=== PATIENT | male | born 1960 | race Caucasian/White ===

== ENCOUNTER 2025-06-13 14:31 | Inpatient (IN) | payer MEDICARE, OTHER, SELFPAY ==
--- NOTE | 2025-06-13 14:34 | EKG_ITS ---
[facility] Test Date: 2025-06-13 Pat Name: CORAZON ALEXANDER Department: Room: - Gender: Male Poly Operator: : 1960 Requested By: Tobin Awad (ORI) Order Number: [id number] Reading MD: Tobin Awad (LOAD TALLIER) Measurements Intervals [place] Rate: 107 P: 70 MO: 137 QRS: -80 QRSD: 136 T: 29 QT: 341 QTc: 455 Interpretive Statements SINUS TACHYCARDIA WITH OCCASIONAL SUPRAVENTRICULAR PREMATURE COMPLEXES INDETERMINATE AXIS RIGHT BUNDLE BRANCH BLOCK [120+ ms QRS DURATION, UPRIGHT V1, 40+ ms S IN I/aVL/V4/V5/V6] LEFT ANTERIOR FASCICULAR BLOCK [QRS AXIS <= -45, QR IN I, RS IN II] No previous ECG available for comparison /store/S0/[id number].pdf
--- NOTE | 2025-06-13 14:53 | EDRME_ITS ---
Rapid Medical Screening Exam RME Arrival date/time: 06/13/25 14:31 65-year-old male presents to the Emergency Department with complaints of right- sided chest pain Chief Complaint: Shortness of Breath/Dyspnea Time Seen by Provider: 06/13/25 15:13 Vital signs: Vital Signs Temperature 103.1 F H 06/13/25 15:03 Pulse Rate 100 06/13/25 15:03 Respiratory Rate 18 06/13/25 15:03 Blood Pressure 175/74 H 06/13/25 15:03 Pulse Oximetry (%) 97 06/13/25 15:03 Oxygen Delivery Method Room Air 06/13/25 15:03 Vital signs reviewed by provider: Yes Exam: On exam well-appearing does not appear ill or toxic Clinical Impression: Lab work imaging EKG and chest x-ray obtained
[2025-06-13 15:03] VITALS: BP 175/74; PULSE 100; RESP 18; TEMP 39.5; O2SAT 97; BMI 23.5
--- NOTE | 2025-06-13 15:27 | XR_ITS ---
EXAMINATION: PA chest single view TECHNIQUE: Upright PA chest single view Date and time: June 13, 2025, 1524 hours INDICATIONS: Sepsis protocol today sepsis alert shortness of breath cough and chest pain beginning 2 days ago. FINDINGS: Bibasilar pneumonia Prominent hilar regions Normal heart size No pulmonary edema Moderate osteopenia IMPRESSION: Significant bibasilar pneumonia
--- NOTE | 2025-06-13 15:42 | EDNOTE_ITS ---
ED SOB =RME/HPI General Chief Complaint: Shortness of Breath/Dyspnea Stated Complaint: WATER IN LUNGS Time Seen by Provider: 06/13/25 15:13 Arrival date/time: 06/13/25 14:31 RME / HPI RME / HPI Narrative: 06/13/25 14:31 65-year-old male presents to the Emergency Department with complaints of right- sided chest pain DR. PIERSON MAIN ED EVALUATION 65 year old male with history of hypertension, not currently on medications, presents to the ED for evaluation of cough, nasal congestion, global weakness, nausea, and cough beginning 2 days ago. Additionally reports diarrhea beginning today. States he has had three episodes of black colored diarrhea today, no bright red blood present. Denies any sick contacts or fevers at home. Patient mentioned he had been homeless the last 9 months ago today got into the [employer] [facility] where he will be housed. No other associated symptoms reported. Patient admits to IV Methamphetamine and IV Fentanyl use. Last injected 4 days ago to the right arm. Exam: On exam well-appearing does not appear ill or toxic Impression: Lab work imaging EKG and chest x-ray obtained Related Data Allergies Allergy/AdvReac Type Severity Reaction Status Date / Time acetaminophen (From Vicodin) Allergy Verified 06/13/25 14:36 codeine Allergy Verified 06/13/25 14:36 hydrocodone (From Vicodin) Allergy Verified 06/13/25 14:36 Review of Systems Review of Systems Systems Reviewed: All systems reviewed, normal except as documented Past Medical History Past Medical History CARDIAC: Negative Congestive Heart Failure RESPIRATORY: Negative Chronic Obstructive Pulmonary Disease (COPD) GENITOURINARY: Negative Renal Disease ENDOCRINE: Negative Diabetes Mellitus Type 1 or Diabetes Mellitus Type 2 Social History SMOKING STATUS: Current every day smoker ED Exam Narrative Physical exam: Constitutional: Awake, alert, elderly appearance, appears unwell. HEENT: Normocephalic, atraumatic. CV: Mildly tachy rate and regular rhythm, no murmurs/rubs/gallops Lungs: Diminished to left lung price with fine crackles present, mild tachypnea. Abd: Soft, NT, ND, no HSM noted to palpation Extremities: track penaloza noted to AC fossa R arm. scattered superficial abrasions to arms. Neuro: AAOx3, no acute neuro deficit noted. Skin: Warm, dry, intact except as noted. Course Course Course Narrative: 1724h: I spoke with hospitalist team C for admission. Sepsis reassessment performed consisting of lab review, vitals, physical exam. Patient has been given 1L lactated ringers. Rocephin IV has been administered. Quality Measures Current suspected stage: sepsis Possible source: pulmonary Blood cultures ordered: completed in ED Antibiotic ordered: Yes Pertinent labs: 06/13/25 06/13/25 15:12 16:00 Lactic Acid 1.3 mMol/L (0.4-2.0) Procalcitonin 0.24 ng/ml (0.0-0.49) sepsis Orders Category Date Time Status Admit to Inpatient Status Routine Admission 06/13/25 18:10 Active Patient Condition Routine Admission 06/13/25 18:10 Ordered Bedside COVID-19 Antigen Test NOW Care 06/13/25 15:27 Active Bedside Influenza A&B Antigen Test NOW Care 06/13/25 15:30 Completed Bedside RSV Test NOW Care 06/13/25 15:27 Completed Bedside STREP Test NOW Care 06/13/25 18:12 Completed Director Of Regional Sales STAT Care 06/13/25 15:26 Active Continuous Pulse Oximetry STAT Care 06/13/25 15:26 Completed EKG (ED ONLY) *Do not use* NOW Care 06/13/25 14:34 Completed EKG (ED ONLY) *Do not use* NOW Care 06/13/25 15:26 Completed Insert IV NOW Care 06/13/25 15:26 Active Notify provider NEEDED Care 06/13/25 18:10 Active Strict Intake and Output Routine Care 06/13/25 15:26 Ordered Diet Regular Diet 06/13/25 Dinner Active EKG (ED Only) Stat Exams 06/13/25 14:34 Draft EKG (ED Only) Stat Exams 06/13/25 15:26 Ordered XR chest 1V SEPSIS PROTOCOL Stat Exams 06/13/25 15:27 Completed B-Type Natriuretic Peptide Stat Lab 06/13/25 15:12 Completed Blood Culture (Lab) Stat Lab 06/13/25 16:05 Received CBC AM DRAW Lab 06/14/25 05:00 Ordered CBC AM DRAW Lab 06/15/25 05:00 Ordered CBC AM DRAW Lab 06/16/25 05:00 Ordered CBC AM DRAW Lab 06/17/25 05:00 Ordered CBC AM DRAW Lab 06/18/25 05:00 Ordered CBC AM DRAW Lab 06/19/25 05:00 Ordered CBC AM DRAW Lab 06/20/25 05:00 Ordered CBC Stat Lab 06/13/25 16:00 Completed CMP [Comprehensive Metabolic Panel] AM DRAW Lab 06/14/25 05:00 Ordered CMP [Comprehensive Metabolic Panel] AM DRAW Lab 06/15/25 05:00 Ordered CMP [Comprehensive Metabolic Panel] AM DRAW Lab 06/16/25 05:00 Ordered CMP [Comprehensive Metabolic Panel] AM DRAW Lab 06/17/25 05:00 Ordered CMP [Comprehensive Metabolic Panel] AM DRAW Lab 06/18/25 05:00 Ordered CMP [Comprehensive Metabolic Panel] AM DRAW Lab 06/19/25 05:00 Ordered CMP [Comprehensive Metabolic Panel] AM DRAW Lab 06/20/25 05:00 Ordered Comprehensive Metabolic Panel Stat Lab 06/13/25 15:12 Completed Drug Screen,Urine Stat Lab 06/13/25 17:36 Completed Extra Blue Top for Platelet Routine Lab 06/13/25 18:23 Ordered Lactate (Lactic Acid) Stat Lab 06/13/25 16:00 Completed Lipid Panel AM DRAW Lab 06/14/25 05:00 Ordered MRSA Nasal Screen Stat Lab 06/13/25 18:24 Ordered Mag [Magnesium] AM DRAW Lab 06/14/25 05:00 Ordered Mag [Magnesium] AM DRAW Lab 06/15/25 05:00 Ordered Mag [Magnesium] AM DRAW Lab 06/16/25 05:00 Ordered Mag [Magnesium] AM DRAW Lab 06/17/25 05:00 Ordered Mag [Magnesium] AM DRAW Lab 06/18/25 05:00 Ordered Mag [Magnesium] AM DRAW Lab 06/19/25 05:00 Ordered Mag [Magnesium] AM DRAW Lab 06/20/25 05:00 Ordered Magnesium Stat Lab 06/13/25 15:12 Completed Partial Thromboplastin Time Stat Lab 06/13/25 15:12 Completed Phosphorous AM DRAW Lab 06/14/25 05:00 Ordered Phosphorous AM DRAW Lab 06/15/25 05:00 Ordered Phosphorous AM DRAW Lab 06/16/25 05:00 Ordered Phosphorous AM DRAW Lab 06/17/25 05:00 Ordered Phosphorous AM DRAW Lab 06/18/25 05:00 Ordered Phosphorous AM DRAW Lab 06/19/25 05:00 Ordered Phosphorous AM DRAW Lab 06/20/25 05:00 Ordered Phosphorous Stat Lab 06/13/25 15:12 Completed Procalcitonin Stat Lab 06/13/25 15:12 Completed Prothrombin Time with INR Stat Lab 06/13/25 15:12 Completed Thyroid Stimulating Hormone AM DRAW Lab 06/14/25 05:00 Ordered Troponin I Stat Lab 06/13/25 15:12 Completed Urinalysis, C/S if Indicated Stat Lab 06/13/25 17:36 Completed Acetaminophen Ivpb [Ofirmev Inj] Med 06/13/25 17:12 Discontinued 1,000 mg in 100 ml IV NOW Acetaminophen Tab [Tylenol Tab] Med 06/13/25 18:15 Active 650 mg PO Q6H PRN Enoxaparin [Lovenox] Med 06/14/25 09:00 Active 40 mg SC QDAY Magnesium Sulfate 2 GM Ivpb [Magnesium Sulfate Ivpb] Med 06/13/25 17:17 Active 2 gm in 50 ml IV X1 Ondansetron Inj [Zofran Inj] Med 06/13/25 15:27 Discontinued 4 mg IVP X1 ONE Pantoprazole Inj [Protonix Inj] Med 06/13/25 15:27 Discontinued 40 mg IVP X1 ONE Ringers Lactated 1000 ml [Lactated Ringers] 1,000 ml Med 06/13/25 15:27 Discontinued IV 999 mls/hr Sodium Chloride 0.9% 1000 ml [Ns] 1,000 ml Med 06/13/25 15:33 Discontinued IV 999 mls/hr cefTRIAXone/D5w 1gm IV premix [Rocephin/D5w 1gm IV Med 06/13/25 15:33 Discontinued premix] 1 gm in 50 ml IV X1 Code Status Routine Oth 06/13/25 18:10 Ordered Oxygen Delivery PRN RT 06/13/25 18:10 Active Vital Signs Vital signs: Vital Signs Temperature 103.1 F H 06/13/25 15:03 Pulse Rate 100 06/13/25 15:03 Respiratory Rate 18 06/13/25 15:03 Blood Pressure 175/74 H 06/13/25 15:03 Pulse Oximetry (%) 97 06/13/25 15:03 Oxygen Delivery Method Room Air 06/13/25 15:03 Pulse ox is 97% on room air which is adequate. Shortness of Breath / Dyspnea MDM Narrative MDM Narrative:: Lala Robertson am scribing for and in the presence of Dr. Pierson. Patient data External records reviewed:: [facility] previous records Clinical information provided by:: patient Social determinants that could affect healthcare access:: substance use (IV Meth and Fentanyl, last used 4 days ago ) Patient has the following chronic illnesses:: Hypertension, not currently on medications How is presenting disease/condition affected by chronic disease/condition?: exacerbated by Evaluation data The following diagnostics were reviewed and interpreted by me:: lab results, radiology exam(s) and EKG tracing(s) (EKG @ 15:07p, sinus tachycardia, rate 107, right bundle branch block, left anterior fascicular block, no STEMI. ) Lab and/or radiology exams considered but not ordered:: None Interpretation Summary: Ordering Physician: Kait Pierson MD Date of Service: 06/13/25 Procedure(s): XR chest 1V SEPSIS PROTOCOL Accession Number(s): [id number] cc: Toribio Day MD; Kait Pierson MD~ EXAMINATION: PA chest single view TECHNIQUE: Upright PA chest single view Date and time: June 13, 2025, 1524 hours INDICATIONS: Sepsis protocol today sepsis alert shortness of breath cough and chest pain beginning 2 days ago. FINDINGS: Bibasilar pneumonia Prominent hilar regions Normal heart size No pulmonary edema Moderate osteopenia IMPRESSION: Significant bibasilar pneumonia Dictated By: Toribio Day MD Signed By: <Electronically signed by Toribio Day MD in OV> 06/13/25 1542 Medications / Prescriptions Medications or Prescriptions considered but not ordered:: None Medication administrations:: Medication Administration History Acetaminophen (Acetaminophen 325 Mg Tablet) 650 mg PO Q6H PRN PRN Reason: Fever >100.5 Stop: 07/13/25 18:14 Enoxaparin Sodium (Enoxaparin Sod Inj 40 Mg/0.4 Ml Syringe) 40 mg SC QDAY VERONIQUE Stop: 06/28/25 08:59 Magnesium Sulfate (Magnesium Sulfate Ivpb) 2 gm in 50 mls @ 25 mls/hr IV X1 ONE Stop: 06/13/25 19:16 Discontinued Medications Lactated Ringer's (Lactated Ringers) 1,000 mls @ 999 mls/hr IV .Q1H1M ONE Stop: 06/13/25 16:27 Last Infusion: 06/13/25 17:57 Dose: Infused Documented By: Admin: 06/13/25 16:56 Dose: 999 mls/hr Documented By: VL Sodium Chloride (Ns) 1,000 mls @ 999 mls/hr IV .Q1H1M ONE Stop: 06/13/25 16:33 Ceftriaxone Sodium/Dextrose (Rocephin/D5w 1gm Iv Premix) 1 gm in 50 mls @ 100 mls/hr IV X1 ONE Stop: 06/13/25 16:02 Last Infusion: 06/13/25 17:27 Dose: Infused Documented By: Admin: 06/13/25 16:57 Dose: 100 mls/hr Documented By: VL Acetaminophen (Ofirmev Inj) 1,000 mg in 100 mls @ 250 mls/hr IV NOW ONE Stop: 06/13/25 17:35 Last Infusion: 06/13/25 17:54 Dose: Infused Documented By: Admin: 06/13/25 17:30 Dose: 250 mls/hr Documented By: VL Ondansetron HCl (Ondansetron Inj 2 Mg/Ml Inj 2 Ml) 4 mg IVP X1 ONE; Protocol Stop: 06/13/25 15:28 Last Admin: 06/13/25 16:51 Dose: 4 mg Documented By: VL Pantoprazole Sodium (Pantoprazole Inj 40 Mg Vial) 40 mg IVP X1 ONE Stop: 06/13/25 15:28 Last Admin: 06/13/25 16:51 Dose: 40 mg Documented By: VL See above Consultations Consultation(s) initiated? (list below): Yes Consultation #1 (Physician, Specialty, Details): See above Diagnosis Shortness of Breath Differential Diagnosis: acute exacerbation of chronic obstructive airways disease, congestive heart failure and community acquired pneumonia Most likely diagnosis given after review of the tests above:: Pneumonia, sepsis Admission Indicated Admission indicated?: indicated Admission Request Was there a request for admission?: Yes Admission Attestation Admission request attestation: Discussed case with [] from Hospitalist service regarding admission. Discussed patients ED course, exam findings, labs, and radiology results. The Hospitalist [agrees,declines] to accept the patient for admission. Disposition Plan Disposition Plan: Admit Discharge Plan Plan Patient Disposition: Admit Acute Care w/in Hospital Prescriptions/Referrals Referrals: No Primary/Family,Physician [Primary Care Provider] - In 1 week Problem List Clinical Impression: Community acquired pneumonia, Sepsis Patient/Caregiver Discharge Instructions Print Language: Citizen Of [place] Stand Alone Forms: [place] Award Info., Patient Portal Info Letter
[2025-06-13 15:55] LABS: INR 1.1 (0.9-1.3); Partial Thromboplastin Time 30.5 Seconds (22.0-36.0); Prothrombin Time 11.7 Seconds (9.0-12.2)
[2025-06-13 16:04] LABS: Alanine Aminotransferase 23 U/L (10-49); Albumin, Serum 4.5 gm/dL (3.4-4.8); Albumin/Globulin Ratio 1.6 (1.2-2.2); Alkaline Phosphatase 113 U/L (46-116); Anion Gap 12 (7-16); Aspartate Amino Transferase 29 U/L (0-34); BUN/Creatinine Ratio 13 Ratio (12-20); Bilirubin,Total 1.0 mg/dL (0.3-1.2); Blood Urea Nitrogen 12 mg/dL (9-23); Calcium 9.1 mg/dL (8.3-10.6); Calcium (Corrected) 9.1 mg/dL (8.5-10.1); Carbon Dioxide 25.4 mMol/L (20.0-31.0); Chloride 97 mMol/L (98-107); Creatinine (Component) 0.9 mg/dL (0.6-1.3); Estimated Creatinine Clearance 75.5 mL/min (>60); Globulin 2.9 gm/dL (2.3-3.5); Glucose 120 mg/dL (74-106); Magnesium 1.3 mg/dL (1.6-2.6); Osmolality,Calculated 268 (275-295); Phosphorous 2.2 mg/dL (2.4-5.1); Potassium 3.7 mMol/L (3.4-5.1); Procalcitonin 0.24 ng/ml (0.0-0.49); Sodium 134 mMol/L (136-145); Total Protein 7.4 gm/dL (5.7-8.2); Troponin I < 0.020 ng/mL (0.0-0.045); eGFR > 60 See Note
[2025-06-13 16:11] LABS: Lactate (Lactic Acid) 1.3 mMol/L (0.4-2.0)
[2025-06-13 16:16] LABS: B-Type Natriuretic Peptide 38 pg/mL (0-100)
[2025-06-13 16:16] LABS: Basophils # (Auto) 0.1 Thou/mm3 (0.0-0.2); Basophils % (Auto) 0 % (0-2.5); Eosinophils # (Auto) 0.0 Thou/mm3 (0.0-0.5); Eosinophils % (Auto) 0 % (0-10); Hematocrit 39.8 % (41.0-53.0); Hemoglobin 13.4 g/dL (13.5-16.0); Immature Granulocytes Auto 0.27 Thou/mm3 (0.00-0.00); Lymphocytes # (Auto) 1.0 Thou/mm3 (1.0-4.8); Lymphocytes % (Auto) 3 % (10-50); Mean Corpuscular HGB Conc 33.7 g/dl (31.0-37.0); Mean Corpuscular Hemoglobin 29.7 pg (25.0-35.0); Mean Corpuscular Volume 88 fL (80-100); Monocytes # (Auto) 2.6 Thou/mm3 (0.0-0.8); Monocytes % (Auto) 8 % (0-12); Neutrophils # (Auto) 28.5 Thou/mm3 (1.8-7.7); Neutrophils % (Auto) 88 % (37-80); Nucleated Red Blood Cell # 0.00 Thou/mm3 (0.00-0.00); Nucleated Red Blood Cell % 0 /100 WBC (0); RDW Standard Deviation 40.8 fL (35.1-43.9); Red Blood Count 4.51 Miln/mm3 (4.50-5.90); White Blood Count 32.5 Thou/mm3 (3.8-10.6)
[2025-06-13 16:34] LABS: Platelet Count 219 Thou/mm3 (140-440)
[2025-06-13] MEDS: ONDANSETRON INJ 2 MG/ML INJ 2 ML 4 MG IVP (16:51)
[2025-06-13] MEDS: RINGERS LACTATED 1000 ML 1,000 ML 999 ML IV (16:56)
[2025-06-13] MEDS: cefTRIAXone/D5w 1gm IV premix 1 GM/50 ML BAG IV (16:57)
[2025-06-13 16:58] VITALS: BP 147/85; PULSE 96; RESP 25; O2SAT 98
[2025-06-13] MEDS: ACETAMINOPHEN IVPB 1,000 MG/100 ML VIAL 250 MG IV (17:30)
[2025-06-13 18:07] LABS: Collection Type, Urine Clean Catch; Squamous Epithelial Cell,Urine 0 /hpf (0-5)
[2025-06-13 18:14] LABS: Bilirubin,Urine Negative (Negative); Blood,Urine Negative (Negative); Clarity,Urine Clear (Clear/Hazy); Color,Urine Lt-Yellow (Lt Yel-Yel); Culture Indicated,Urine Not Indicated; Glucose, Urine Negative (Negative); Ketones,Urine Negative (Negative); Leukocyte Esterase,Urine Negative (Negative); Nitrite,Urine Negative (Negative); PH,Urine 8.0 (5.0-7.0); Protein,Urine Negative (Neg - Trace); RBC,Urine 5 /hpf (0-3); Specific Gravity,Urine 1.009 (1.001-1.035); Urobilinogen,Urine Negative mg/dL (0.0-1.0); WBC,Urine < 1 /hpf (0-5)
[2025-06-13 18:19] LABS: Amphetamine/Methamp Scrn,U Negative (Negative); Barbiturate Screen,Urine Negative (Negative); Benzodiazepines Screen,Urine Negative (Negative); Benzoylecgonine Screen, Ur Negative (Negative); Fentanyl Screen,Urine Positive (Negative); Opiate Screen,Urine Negative (Negative); THC Screen,Urine Negative (Negative)
--- NOTE | 2025-06-13 18:24 | ESHP_ITS ---
<Statement entered by Leandro Castillo MD - 06/14/25 15:22> 65-year-old male with a history of hypertension, meth/fentanyl use who presented for 2-day history of fatigue and cough. Last time he used fentanyl was 2 to 3 days prior to presentation and noted to have had recently started at a rehab center for fentanyl abuse. Exhibiting multiple signs of opioid withdrawal including yawning, diffuse pain, and rhinorrhea amongst others. Initial vitals showed BP 175/74, temp 103.1 ?F but saturating well on room air. CBC showed WBC 32, CHEM panel showed mild hyponatremia, hypophosphatemia, and hypomagnesemia that were repleted. U tox positive for fentanyl. CXR showed significant bibasilar pneumonia. Blood cultures obtained and will follow-up and in the meantime we will start patient on azithromycin and ceftriaxone for commune acquired pneumonia coverage. ----- Note reviewed and agree with care plan as documented. Please refer to the note below for further details. Plan discussed with attending physician Dr. Radha Castillo MD PGY-2 Internal Medicine Documentation for date of: 06/13/25 HPI History of Present Illness Chief complaint: Cough, diarrhea History of present illness: Patient is a 65-year-old male with past medical history of hypertension (not using anti-hypertensives), meth/fentanyl use presented to the ED after having cough, fatigue for the last 2 day. Patient states cough is productive non- bloody cough. Patient states that he has had no sick contacts but has been using drugs. Patient endorses that he usually lives with his sister in [place] but was a rehab center for fentanyl abuse for the last 24 hours or so. Endorses having fever ever since being in ED. Patient states that he last used drugs 2 to 3 days ago. Patient appears to be yawning, having the need to move around, feeling diffuse pain, agitated and endorses rhinorrhea; all concerning for opioid withdrawal. Patient is not sure if he aspirated while under the influence of drugs. Patient also endorses weight loss (unsure how much in how long), cough, fatigue, fever, chest pain on inspiration, epigastric pain, black colored diarrhea. mortgage loan assistant was present during this conversation, wants to know if patient will be well enough to continue living at the rehab. Past Medical History: above; denies any other history including ME, diabetes, stroke. Family History: n/a Surgical History: none noted Social History: endorses smoking history since being out of long term (unsure how much), endorses alcohol intake (not sure how much), endorses meth and fentanyl use Current Medications: Saboxone Allergies: vicodin, codeine, hydrocodone ED Course: -Initial vitals were blood pressure 175/74, pulse 100, respiratory rate 18, temperature 103.1, 97% oxygen on room air -Labs significant for WBC 32.5, hemoglobin 13.4, neutrophil percentage 88, sodium 134, chloride 97, Kos 120 calculated osmolality 268, phosphorus 2.2, magnesium 1.3, urine tox positive for fentanyl -Imaging included EKG showed sinus tachycardia, right bundle branch block Chest x-ray showed significant bibasilar pneumonia -In the ED, patient was given Protonix 40 mg x 1, Zofran x 1, 1 L LR, ceftriaxone x 1, Tylenol 1000 mg IV x 1 Blood cultures x2 taken -Patient was admitted for workup and management of pneumonia Review of Systems Review of systems otherwise negative except what is mentioned above. Exam Vital Signs Temp Pulse Resp BP Pulse Ox O2 Del Method 103.1 F H 96 25 H 147/85 H 98 Room Air 06/13/25 15:03 06/13/25 16:58 06/13/25 16:58 06/13/25 16:58 06/13/25 16:58 06/13/25 16:58 Narrative Exam General: Appears in mild pain discomfort; A&Ox3; frequent yawning, tired, mild agitated Skin: Scratch penaloza fresh/healing scattered throughout body. Tattoos, injection penaloza on arm HENT: NCAT, EOMI/PERRL, not icteric. External ears normal. No rhinorrhea. Moist mucous membranes Cardiovascular: Regular rate and rhythm, no murmur, +S1/S2. Respiratory: Decreased lung sounds bilateral lung lobes; tachypneic GI: Soft, nontender, non-distended. No guarding or rebound tenderness. : No suprapubic tenderness. No flank tenderness bilaterally. Extremities: trace edema b/l, no cyanosis, no clubbing. Extremity pulses present Neuro: Grossly nonfocal. Moving all 4 extremities. CN not formally tested but appear grossly intact. Psychiatric: Cooperative, appropriate affect. Results: Labs 06/14/25 04:55 06/14/25 04:55 Labs: Short CBC 06/13/25 Range/Units 16:00 WBC 32.5 H (3.8-10.6) Thou/mm3 Hgb 13.4 L (13.5-16.0) g/dL Hct 39.8 L (41.0-53.0) % Plt Count 219 (140-440) Thou/mm3 BMP 06/13/25 15:12 Sodium 134 L Potassium 3.7 Chloride 97 L Carbon Dioxide 25.4 BUN 12 Creatinine 0.9 Glucose 120 H Calcium 9.1 Cardiac Enzymes 06/13/25 Range/Units 15:12 Troponin I < 0.020 (0.0-0.045) ng/mL Liver Function 06/13/25 Range/Units 15:12 Total Bilirubin 1.0 (0.3-1.2) mg/dL AST 29 (0-34) U/L ALT 23 (10-49) U/L Alkaline Phosphatase 113 (46-116) U/L Albumin 4.5 (3.4-4.8) gm/dL Urine 06/13/25 Range/Units 17:36 Urine Color Lt-Yellow (Lt Yel-Yel) Urine Clarity Clear (Clear/Hazy) Urine pH 8.0 H (5.0-7.0) Ur Specific [place] 1.009 (1.001-1.035) Urine Protein Negative (Neg - Trace) Urine Glucose (UA) Negative (Negative) Quality Measures Quality Measures sepsis Current suspected stage: ruled out (qsofa 1 for RR 25) Possible source: pulmonary Blood cultures ordered: completed in ED Antibiotic ordered: Yes Advance care planning discussed with:: patient Medications Home Medications and Allergies Home Medications ?Medication ?Instructions ?Recorded ?Confirmed ?Type No Known Home Medications 06/13/2505/27 History Allergies Allergy/AdvReac Type Severity Reaction Status Date / Time acetaminophen (From Vicodin) Allergy Verified 06/13/25 14:36 codeine Allergy Verified 06/13/25 14:36 hydrocodone (From Vicodin) Allergy Verified 06/13/25 14:36 Visit Medications Acetaminophen (Acetaminophen 325 Mg Tablet) 650 mg PO Q6H PRN PRN Reason: Fever >101.5 Stop: 07/13/25 18:14 Enoxaparin Sodium (Enoxaparin Sod Inj 40 Mg/0.4 Ml Syringe) 40 mg SC QDAY VERONIQUE Stop: 06/28/25 08:59 Magnesium Sulfate (Magnesium Sulfate Ivpb) 2 gm in 50 mls @ 25 mls/hr IV X1 ONE Stop: 06/13/25 19:16 Discontinued Medications Lactated Ringer's (Lactated Ringers) 1,000 mls @ 999 mls/hr IV .Q1H1M ONE Stop: 06/13/25 16:27 Last Infusion: 06/13/25 17:57 Dose: Infused Sodium Chloride (Ns) 1,000 mls @ 999 mls/hr IV .Q1H1M ONE Stop: 06/13/25 16:33 Ceftriaxone Sodium/Dextrose (Rocephin/D5w 1gm Iv Premix) 1 gm in 50 mls @ 100 mls/hr IV X1 ONE Stop: 06/13/25 16:02 Last Infusion: 06/13/25 17:27 Dose: Infused Acetaminophen (Ofirmev Inj) 1,000 mg in 100 mls @ 250 mls/hr IV NOW ONE Stop: 06/13/25 17:35 Last Infusion: 06/13/25 17:54 Dose: Infused Ondansetron HCl (Ondansetron Inj 2 Mg/Ml Inj 2 Ml) 4 mg IVP X1 ONE; Protocol Stop: 06/13/25 15:28 Last Admin: 06/13/25 16:51 Dose: 4 mg Pantoprazole Sodium (Pantoprazole Inj 40 Mg Vial) 40 mg IVP X1 ONE Stop: 06/13/25 15:28 Last Admin: 06/13/25 16:51 Dose: 40 mg Assessment & Plan Plan Patient is a 65-year-old male with past medical history of hypertension (not using anti-hypertensives), meth/fentanyl use presented to the ED after having cough, fatigue for the last 2 day. Patient admitted for community acquired pneumonia. #Community acquired pneumonia #Tachypnea Pro-tania low supports viral; neutrophil 88% supports bacterial Patient has had 2 days of non-bloody productive cough, fatigue Decreased breath sounds and tachypneic on exam on admission No recent hospitalization or abx exposure WBC 32.5, Temp 103.1 on admission, pro-tania 0.24, Lactic acid 1.3 Saturating well on room air q-sofa score of 1 for RR 25 Chest x-ray showed significant bibasilar pneumonia Given 1 L LR in ED & Ceftriaxone 1 g x1 -Azithromycin & Ceftriaxone 1 gm qd -mrsa, strep a, covid, flu a/b, rsv ordered -blood cultures taken -O2 delivery prn #Fentanyl withdrawal #Fentanyl use disorder #Diffuse body pain, aches Patient endorses history of fentanyl and meth; last used 2-3 days ago. UTOX positive for fentanyl takes saboxone (only medication) at home morphine x1 given -morphine 1 mg q6hr prn ordered #Melena Patient endorsed black colored diarrhea x3 today complained of epigastric pain earlier in the day; denies any history of GI issues hgb at 13.4 no s/s of bleeding -GI consulted, appreciate recs -protonix iv ordered (x1 in ED) #HTN patient states he doesn't take anti-htn meds presented with bp 175/74; could be elevated over baseline due to pain/withdrawals -will try to address pain/withdrawals control, contributing to htn -will continue to monitor -patient will need pcp follow up to start bp meds #tachycardia Sinus tachy on EKG with RBBB patient has diffuse body aches/pain, discomfort given 1 L LR in ED -will continue to monitor #electrolyte derangements #hypomagnesemia #hypophosphatemia Mag 1.3, phos 2.2 on admission -repleted, will continue to monitor and replete as appropriate Hospital Management: Disposition: Med Surg Diet: Regular GI Prophylaxis: protonix Bowel Prophylaxis: n/a DVT Prophylaxis: lovenox CODE STATUS: full code Patient plan of care was discussed with the attending physician, Dr. Garcia & senior resident Dr. Anna Sánchez MD PGY-1 Attending Provider Attestation/Addendum I have examined the patient, reviewed labs and imaging findings, discussed the case with the resident(s), and reviewed entered orders. I agree with the plan of care as outlined in this note, with these additional summaries/recommendations: After examination of the patient and review of the clinical data, I feel that this patient needs admission to the hospital for further treatment and evaluation. Dr. Radha MD
[2025-06-13 18:28] VITALS: BP 139/81; PULSE 97; RESP 20; TEMP 37.4; O2SAT 97
[2025-06-13 18:56] VITALS: BP 132/99; PULSE 102; RESP 18; TEMP 37.2; O2SAT 98
[2025-06-13 19:08] VITALS: BP 162/114; PULSE 108; RESP 18; O2SAT 94
[2025-06-13] MEDS: Magnesium Sulfate 2 GM Ivpb 2 GM/50 ML BAG IV (19:17)
[2025-06-13] MEDS: ACETAMINOPHEN 325 MG TABLET 650 MG PO (19:17)
[2025-06-13] MEDS: NAPH,KPH MBDB 1 PACKET (1.5 GM) PO (20:15)
[2025-06-13] MEDS: MORPHINE SULF INJ 4 MG/ML VIAL 2 MG IV (20:15)
[2025-06-13 20:21] VITALS: BP 148/96; PULSE 91; RESP 20; TEMP 36.6; O2SAT 96
--- NOTE | 2025-06-13 21:12 | PC.NURSE ---
DR. FRANCISCO WAS CONTACTED DUE TO PTS INCREASE RESTLESSNESS. PT STATES THAT THEY HAVE 10/10 PAIN AND INITALLY DID NOT WANT THE TYLENOL. THIS RN EDUCATED PT TO START WITH THE TYLENOL BUT PT REFUSED. THIS RN CONTACTED DR. FRANCISCO AND EXPLAINED SITUTAION. PER PROVIDER TO CONVINCE PT TO TAKE TYLENOL. PT TOOK MEDICATION. PROVIDER WAS AT BEDSIDE EDUCATING PT. AN ORDER OF 2 MORPHINE IVP WAS ENTERED. MORPHINE GIVEN. PT STILL HAS INCREASE RESTLESSNESS. PT STILL STATES HE LAS 10/10 PAIN. PROVIDER WAS CONTACTED
--- NOTE | 2025-06-13 21:21 | PC.NURSE ---
CARISA MARCIAL WAS CONTACTED ABOUT PTS BEHAVIOR. PER PROVIDER I WILL LOOK INTO HIS CHART TO SEE
[2025-06-13 21:48] VITALS: BMI 22.3
[2025-06-13] MEDS: AZITHROMYCIN INJ 500 MG in SODIUM CHLORIDE 0.9% 250 ML 250 ML 250 MG IV (21:53)
[2025-06-14] VITALS (7 sets, daily range): BP systolic 96–169; BP diastolic 70–90; PULSE 64–107; RESP 19–20; TEMP 36.2–37.1; O2SAT 96–98
[2025-06-14] MEDS: MORPHINE SULF INJ 4 MG/ML VIAL 1 MG IVP (00:40)
[2025-06-14 06:12] LABS: Basophils # (Auto) 0.1 Thou/mm3 (0.0-0.2); Basophils % (Auto) 0 % (0-2.5); Eosinophils # (Auto) 0.0 Thou/mm3 (0.0-0.5); Eosinophils % (Auto) 0 % (0-10); Hematocrit 40.5 % (41.0-53.0); Hemoglobin 13.8 g/dL (13.5-16.0); Immature Granulocytes Auto 0.24 Thou/mm3 (0.00-0.00); Lymphocytes # (Auto) 1.4 Thou/mm3 (1.0-4.8); Lymphocytes % (Auto) 5 % (10-50); Mean Corpuscular HGB Conc 34.1 g/dl (31.0-37.0); Mean Corpuscular Hemoglobin 29.9 pg (25.0-35.0); Mean Corpuscular Volume 88 fL (80-100); Monocytes # (Auto) 2.3 Thou/mm3 (0.0-0.8); Monocytes % (Auto) 9 % (0-12); Neutrophils # (Auto) 21.8 Thou/mm3 (1.8-7.7); Neutrophils % (Auto) 85 % (37-80); Nucleated Red Blood Cell # 0.00 Thou/mm3 (0.00-0.00); Nucleated Red Blood Cell % 0 /100 WBC (0); RDW Standard Deviation 39.6 fL (35.1-43.9); Red Blood Count 4.62 Miln/mm3 (4.50-5.90); White Blood Count 25.9 Thou/mm3 (3.8-10.6)
[2025-06-14 06:35] LABS: Glucose Estimated Average 111 mg/dL (80-131); Hemoglobin A1C 5.5 % Hgb (4.8-6.0)
[2025-06-14 06:37] LABS: Alanine Aminotransferase 23 U/L (10-49); Albumin, Serum 4.2 gm/dL (3.4-4.8); Albumin/Globulin Ratio 1.4 (1.2-2.2); Alkaline Phosphatase 114 U/L (46-116); Anion Gap 10 (7-16); Aspartate Amino Transferase 30 U/L (0-34); BUN/Creatinine Ratio 11 Ratio (12-20); Bilirubin,Total 1.0 mg/dL (0.3-1.2); Blood Urea Nitrogen 9 mg/dL (9-23); Calcium 9.3 mg/dL (8.3-10.6); Calcium (Corrected) 9.3 mg/dL (8.5-10.1); Carbon Dioxide 28.3 mMol/L (20.0-31.0); Cardiac Risk Estimate 2.6 RATIO (4.0-6.7); Chloride 105 mMol/L (98-107); Cholesterol 144 mg/dL (132-200); Creatinine (Component) 0.8 mg/dL (0.6-1.3); Estimated Creatinine Clearance 83.0 mL/min (>60); Globulin 3.1 gm/dL (2.3-3.5); Glucose 101 mg/dL (74-106); HDL Cholesterol 55 mg/dL (40-60); LDL Cholesterol,Calculated 73 mg/dL (0-130); Magnesium 2.0 mg/dL (1.6-2.6); Osmolality,Calculated 283 (275-295); Phosphorous 2.1 mg/dL (2.4-5.1); Potassium 3.6 mMol/L (3.4-5.1); Sodium 143 mMol/L (136-145); Thyroid Stimulating Hormone 0.24 uIU/mL (0.55-4.78); Total Protein 7.3 gm/dL (5.7-8.2); Triglycerides 80 mg/dL (30-150); eGFR > 60 See Note
[2025-06-14 08:19] LABS: Platelet Count 217 Thou/mm3 (140-440)
[2025-06-14] MEDS: NAPH,KPH MBDB 1 PACKET (1.5 GM) PO ×2 (08:23→19:34)
[2025-06-14] MEDS: ENOXAPARIN SOD INJ 40 MG/0.4 ML SYRINGE SC (08:23)
[2025-06-14] MEDS: cefTRIAXone/D5w 1gm IV premix 1 GM/50 ML BAG IV (08:29)
--- NOTE | 2025-06-14 13:30 | ESPR_ITS ---
<Statement entered by Charli Land MD - 06/14/25 16:44> Patient was seen and examined at bedside. Agree on the assessment and plan in this note. - Patient's plan and care discussed with my attending, Dr. Radha Land MD Internal Medicine PGY-3 Documentation for date of: 06/14/25 Subjective Subjective Interval history: No acute events overnight, patient states that he is feeling a lot better and wants to go home. 1 patient going home quite yet because we are still waiting on blood cultures and blood cell count is still elevated. Later in the day patient wanted to AMA and take a smoke, but after talking with him and prescribing him nicotine patch, he decided to stay for now. FOBT ordered for on admission endorsing melena. Patient currently denies any bleeding from any source of the body. Hgb is stable. Exam Vital Signs Temp Pulse Resp BP Pulse Ox O2 Del Method 97.2 F 107 H 19 96/70 96 Room Air 06/14/25 12:00 06/14/25 12:00 06/14/25 12:00 06/14/25 12:00 06/14/25 12:00 06/14/25 12:00 Narrative Exam General: Resting in no acute distress; A&Ox3; yawning, tired appearing Skin: Scratch penaloza fresh/healing scattered throughout body. Tattoos, injection penaloza on arm HENT: NCAT, EOMI/PERRL, not icteric. External ears normal. No rhinorrhea. Moist mucous membranes Cardiovascular: Regular rate and rhythm, no murmur, +S1/S2. Respiratory: Decreased lung sounds bilateral lung lobes GI: Soft, nontender, non-distended. No guarding or rebound tenderness. : No suprapubic tenderness. No flank tenderness bilaterally. Extremities: trace edema b/l, no cyanosis, no clubbing. Extremity pulses present Neuro: Grossly nonfocal. Moving all 4 extremities. CN not formally tested but appear grossly intact. Psychiatric: Cooperative, appropriate affect. Objective Labs 06/15/25 05:05 06/15/25 05:05 Labs: Laboratory Results - last 24 hr 06/13/25 06/13/25 06/13/25 15:12 16:00 17:36 WBC 32.5 H RBC 4.51 Hgb 13.4 L Hct 39.8 L MCV 88 MCH 29.7 MCHC 33.7 RDW Std Deviation 40.8 Plt Count 219 Neut % (Auto) 88 H Lymph % (Auto) 3 L [place] % (Auto) 8 Eos % (Auto) 0 Baso % (Auto) 0 Neut # (Auto) 28.5 H Lymph # (Auto) 1.0 [place] # (Auto) 2.6 H Eos # (Auto) 0.0 Baso # (Auto) 0.1 Immature Gran # (Auto) 0.27 H Absolute Nucleated RBC 0.00 Immature Gran % 1 H Nucleated RBC % 0 PT 11.7 INR 1.1 APTT 30.5 Sodium 134 L Potassium 3.7 Chloride 97 L Carbon Dioxide 25.4 Anion Gap 12 BUN 12 Creatinine 0.9 Estim Creat Clear Calc 75.5 eGFR > 60 BUN/Creatinine Ratio [address] Glu mg/dL Hemoglobin A1c Calculated Osmolality 268 L Lactic Acid 1.3 Calcium 9.1 Corrected Calcium 9.1 Phosphorus 2.2 L Magnesium 1.3 L Total Bilirubin 1.0 AST 29 ALT 23 Alkaline Phosphatase 113 Troponin I < 0.020 B-Natriuretic Peptide 38 Total Protein 7.4 Albumin 4.5 Globulin 2.9 Albumin/Globulin Ratio 1.6 Triglycerides Cholesterol LDL Cholesterol, Calc HDL Cholesterol Cholesterol/HDL Ratio Procalcitonin 0.24 TSH Ur Collection Type Clean Catch Urine Color Lt-Yellow Urine Clarity Clear Urine pH 8.0 H Ur Specific [place] 1.009 Urine Protein Negative Urine Glucose (UA) Negative Urine Ketones Negative Urine Blood Negative Urine Nitrite Negative Urine Bilirubin Negative Urine Urobilinogen (Auto) Negative Ur Leukocyte Esterase Negative Urine RBC 5 H Urine WBC < 1 Ur Squamous Epith Cells 0 Urine Bacteria None Ur Culture Indicated? Not Indicated Urine Opiates Screen Negative Urine Fentanyl Screen Positive A Ur Barbiturates Screen Negative U Amphetamin/Meth Scrn Negative U Benzodiazepines Scrn Negative U Cocaine Metab Screen Negative U Marijuana (THC) Screen Negative Misc Test Result 06/14/25 04:55 WBC 25.9 H D RBC 4.62 Hgb 13.8 Hct 40.5 L MCV 88 MCH 29.9 MCHC 34.1 RDW Std Deviation 39.6 Plt Count 217 Neut % (Auto) 85 H Lymph % (Auto) 5 L [place] % (Auto) 9 Eos % (Auto) 0 Baso % (Auto) 0 Neut # (Auto) 21.8 H Lymph # (Auto) 1.4 [place] # (Auto) 2.3 H Eos # (Auto) 0.0 Baso # (Auto) 0.1 Immature Gran # (Auto) 0.24 H Absolute Nucleated RBC 0.00 Immature Gran % 1 H Nucleated RBC % 0 PT INR APTT Sodium 143 Potassium 3.6 Chloride 105 Carbon Dioxide 28.3 Anion Gap 10 BUN 9 Creatinine 0.8 Estim Creat Clear Calc 83.0 eGFR > 60 BUN/Creatinine Ratio 11 L Glucose [address] Glu mg/dL 111 Hemoglobin A1c 5.5 Calculated Osmolality 283 Lactic Acid Calcium 9.3 Corrected Calcium 9.3 Phosphorus 2.1 L Magnesium 2.0 Total Bilirubin 1.0 AST 30 ALT 23 Alkaline Phosphatase 114 Troponin I B-Natriuretic Peptide Total Protein 7.3 Albumin 4.2 Globulin 3.1 Albumin/Globulin Ratio 1.4 Triglycerides 80 Cholesterol 144 LDL Cholesterol, Calc 73 HDL Cholesterol 55 Cholesterol/HDL Ratio 2.6 L Procalcitonin TSH 0.24 L Ur Collection Type Urine Color Urine Clarity Urine pH Ur Specific [place] Urine Protein Urine Glucose (UA) Urine Ketones Urine Blood Urine Nitrite Urine Bilirubin Urine Urobilinogen (Auto) Ur Leukocyte Esterase Urine RBC Urine WBC Ur Squamous Epith Cells Urine Bacteria Ur Culture Indicated? Urine Opiates Screen Urine Fentanyl Screen Ur Barbiturates Screen U Amphetamin/Meth Scrn U Benzodiazepines Scrn U Cocaine Metab Screen U Marijuana (THC) Screen Misc Test Result Cancelled Quality Measures Quality Measures VTE prophylaxis Advance care planning discussed with:: patient Assessment & Plan Assessment Current Active Medications: Generic Name Dose Route Start Last Admin Trade Name Freq PRN Reason Stop Dose Admin Acetaminophen 650 mg 06/13/25 18:15 06/13/25 19:17 Acetaminophen 325 Mg Tablet PO 07/13/25 18:14 650 mg Q6H PRN Administration Fever >100.5 Enoxaparin Sodium 40 mg 06/14/25 09:00 06/14/25 08:23 Enoxaparin Sod Inj 40 Mg/0.4 Ml Syringe SC 06/28/25 08:59 40 mg QDAY VERONIQUE Administration Azithromycin 250 mg/ Sterile 252.5 mls @ 252.5 mls/hr 06/14/25 21:00 Water 2.5 ml/ Sodium Chloride IV 06/21/25 20:59 HS VERNOIQUE Ceftriaxone Sodium/Dextrose 1 gm in 50 mls @ 100 mls/hr 06/14/25 09:56 06/14/25 08:29 Rocephin/D5w 1gm Iv Premix IV 06/21/25 09:55 100 mls/hr QDAY VERONIQUE Administration Pantoprazole Sodium 40 mg 06/14/25 09:00 06/14/25 08:23 Pantoprazole Inj 40 Mg Vial IVP 07/14/25 08:59 40 mg QDAY VERONIQUE Administration Potassium Phos/Sodium Phos 1 packet 06/13/25 21:00 06/14/25 08:23 Naph,[facility] Mbdb 1 Packet (1.5 Gm) PO 07/13/25 20:59 1 packet BIDWM VERONIQUE Administration Plan Patient is a 65-year-old male with past medical history of hypertension (not using anti-hypertensives), meth/fentanyl use presented to the ED after having cough, fatigue for the last 2 day. Patient admitted for community acquired pneumonia. #Community acquired pneumonia #Tachypnea Pro-tania low supports viral; neutrophil 88% supports bacterial Patient has had 2 days of non-bloody productive cough, fatigue Decreased breath sounds and tachypneic on exam on admission No recent hospitalization or abx exposure WBC 32.5, Temp 103.1 on admission, pro-tania 0.24, Lactic acid 1.3 Saturating well on room air q-sofa score of 1 for RR 25 Chest x-ray showed significant bibasilar pneumonia Given 1 L LR in ED & Ceftriaxone 1 g x1 -Azithromycin & Ceftriaxone 1 gm qd -mrsa, strep a, covid, flu a/b, rsv ordered -blood cultures pending -O2 delivery prn #Fentanyl withdrawal #Fentanyl use disorder #Diffuse body pain, aches Patient endorses history of fentanyl and meth; last used 2-3 days ago. UTOX positive for fentanyl takes saboxone 12 mg qd(only medication) at home morphine x1 given -reached out to pharmacy for conversion to methadone, pharmacy stated they will look into it, will f/u #Melena, resolved Patient endorsed black colored diarrhea x3 today complained of epigastric pain earlier in the day; denies any history of GI issues hgb at 13.4, stable no s/s of bleeding since -GI consulted, appreciate recs -FOBT ordered -protonix iv ordered (x1 in ED) #HTN patient states he doesn't take anti-htn meds presented with bp 175/74; could be elevated over baseline due to pain/withdrawals -will try to address pain/withdrawals control, contributing to htn -will continue to monitor -patient will need pcp follow up to start bp meds #tachycardia Sinus tachy on EKG with RBBB patient has diffuse body aches/pain, discomfort given 1 L LR in ED -will continue to monitor #electrolyte derangements #hypomagnesemia #hypophosphatemia Mag 1.3, phos 2.2 on admission -repleted, will continue to monitor and replete as appropriate Hospital Management: Disposition: Med Surg Diet: Regular GI Prophylaxis: protonix Bowel Prophylaxis: n/a DVT Prophylaxis: lovenox CODE STATUS: full code Patient plan of care was discussed with the attending physician, Dr. Garcia & senior resident Dr. Emery Sánchez MD PGY-1 Attending Provider Attestation/Addendum I have examined the patient, reviewed labs and imaging findings, discussed the case with the resident(s), and reviewed entered orders. I agree with the plan of care as outlined in this note. Dr. Radha MD
--- NOTE | 2025-06-14 15:02 | PD.RESCONSUL ---
HPI Data of Consult Requesting Physician: Abhijeet Garcia MD Admitting Provider: Abhijeet Garcia MD Attending Provider: Abhijeet Garcia MD Primary Care Provider: Physician No Primary/Family Consult Narrative History of present illness: 65-year-old male with a history of hypertension and meth/fentanyl use, presented to the ED with 2 days of cough and fatigue and admitted for community acquired pneumonia. The patient denies sick contacts but acknowledges ongoing drug use. He typically lives with his sister in [place] but has recently been in a rehab facility for fentanyl abuse, with the last use 2?3 days ago. He denies abdominal pain, weight loss, hematemesis, or melena. No history of NSAID use or significant alcohol consumption, no personal history of cancer. The patient has not had any prior EGD or colonoscopy. Hemoglobin stable at 13.8. Past medical history: As stated above. Past surgical history: No previous GI surgery Allergies: Acetaminophen, codeine, hydrocodone Family history: Noncontributory. No family history of cancer. Social history: No alcohol use, no smoking, meth and fentanyl use GI consulted for potential melena stool noted by the hospitalist team, however patient denies it. cc:: cc: Abhijeet Garcia MD Review of Systems Review of Systems Systems Reviewed: All systems reviewed, normal except as documented Exam Vital Signs Temp Pulse Resp BP Pulse Ox O2 Del Method 97.2 F 107 H 19 96/70 96 Room Air 06/14/25 12:00 06/14/25 12:00 06/14/25 12:00 06/14/25 12:00 06/14/25 12:00 06/14/25 12:00 Narrative Exam General: AOx3, no acute distress, able to speak full sentences, yawning, tired appearing HEENT: NC/AT, mucous membranes moist, bilateral sclera anicteric Cardiovascular: regular rate and rhythm, S1/S2 present, no murmurs appreciated Pulmonary: Decreased lung sounds bilateral lung lobes Abdominal: soft, non-tender, non-distended, no rebound/guarding, normal bowel sounds present Musculoskeletal: normal ROM, no peripheral edema Skin: warm and dry, intact, no rashes, Neuro: CN II-XII intact, no focal deficits Results Labs 06/15/25 05:05 06/15/25 05:05 Labs: Short CBC 06/13/25 06/14/25 Range/Units 16:00 04:55 WBC 32.5 H 25.9 H D (3.8-10.6) Thou/mm3 Hgb 13.4 L 13.8 (13.5-16.0) g/dL Hct 39.8 L 40.5 L (41.0-53.0) % Plt Count 219 217 (140-440) Thou/mm3 BMP 06/13/25 06/14/25 15:12 04:55 Sodium 134 L 143 Potassium 3.7 3.6 Chloride 97 L 105 Carbon Dioxide 25.4 28.3 BUN 12 9 Creatinine 0.9 0.8 Glucose 120 H 101 Calcium 9.1 9.3 Cardiac Enzymes 06/13/25 Range/Units 15:12 Troponin I < 0.020 (0.0-0.045) ng/mL Liver Function 06/13/25 06/14/25 Range/Units 15:12 04:55 Total Bilirubin 1.0 1.0 (0.3-1.2) mg/dL AST 29 30 (0-34) U/L ALT 23 23 (10-49) U/L Alkaline Phosphatase 113 114 (46-116) U/L Albumin 4.5 4.2 (3.4-4.8) gm/dL Urine 06/13/25 Range/Units 17:36 Urine Color Lt-Yellow (Lt Yel-Yel) Urine Clarity Clear (Clear/Hazy) Urine pH 8.0 H (5.0-7.0) Ur Specific [place] 1.009 (1.001-1.035) Urine Protein Negative (Neg - Trace) Urine Glucose (UA) Negative (Negative) Quality Measures Quality Measures sepsis Current suspected stage: ruled out Possible source: pulmonary Blood cultures ordered: completed in ED Antibiotic ordered: Yes Advance care planning discussed with:: patient Medications Home Medications and Allergies Allergies Allergy/AdvReac Type Severity Reaction Status Date / Time acetaminophen (From Vicodin) Allergy Verified 06/13/25 14:36 codeine Allergy Verified 06/13/25 14:36 hydrocodone (From Vicodin) Allergy Verified 06/13/25 14:36 Visit Medications Acetaminophen (Acetaminophen 325 Mg Tablet) 650 mg PO Q6H PRN PRN Reason: Fever >100.5 Stop: 07/13/25 18:14 Last Admin: 06/13/25 19:17 Dose: 650 mg Enoxaparin Sodium (Enoxaparin Sod Inj 40 Mg/0.4 Ml Syringe) 40 mg SC QDAY VERONIQUE Stop: 06/28/25 08:59 Last Admin: 06/14/25 08:23 Dose: 40 mg Azithromycin 250 mg/ Sterile (Water 2.5 ml/ Sodium Chloride) 252.5 mls @ 252.5 mls/hr IV HS VERONIQUE Stop: 06/21/25 20:59 Ceftriaxone Sodium/Dextrose (Rocephin/D5w 1gm Iv Premix) 1 gm in 50 mls @ 100 mls/hr IV QDAY VERONIQUE Stop: 06/21/25 09:55 Last Admin: 06/14/25 08:29 Dose: 100 mls/hr Pantoprazole Sodium (Pantoprazole Inj 40 Mg Vial) 40 mg IVP QDAY [facility] Stop: 07/14/25 08:59 Last Admin: 06/14/25 08:23 Dose: 40 mg Potassium Phos/Sodium Phos (Naph,[facility] Mbdb 1 Packet (1.5 Gm)) 1 packet PO BIDWM VERONIQUE Stop: 07/13/25 20:59 Last Admin: 06/14/25 08:23 Dose: 1 packet Discontinued Medications Lactated Ringer's (Lactated Ringers) 1,000 mls @ 999 mls/hr IV .Q1H1M ONE Stop: 06/13/25 16:27 Last Infusion: 06/13/25 17:57 Dose: Infused Sodium Chloride (Ns) 1,000 mls @ 999 mls/hr IV .Q1H1M ONE Stop: 06/13/25 16:33 Last Admin: 06/13/25 18:57 Dose: Not Given Ceftriaxone Sodium/Dextrose (Rocephin/D5w 1gm Iv Premix) 1 gm in 50 mls @ 100 mls/hr IV X1 ONE Stop: 06/13/25 16:02 Last Infusion: 06/13/25 17:27 Dose: Infused Acetaminophen (Ofirmev Inj) 1,000 mg in 100 mls @ 250 mls/hr IV NOW ONE Stop: 06/13/25 17:35 Last Infusion: 06/13/25 17:54 Dose: Infused Magnesium Sulfate (Magnesium Sulfate Ivpb) 2 gm in 50 mls @ 25 mls/hr IV X1 ONE Stop: 06/13/25 19:16 Last Infusion: 06/13/25 21:18 Dose: Infused Azithromycin 500 mg/ Sodium (Chloride) 250 mls @ 250 mls/hr IV X1 ONE Stop: 06/13/25 20:54 Last Admin: 06/13/25 21:53 Dose: 250 mls/hr Morphine Sulfate (Morphine Sulf Inj 4 Mg/Ml Vial) 2 mg 0.03 mg/kg (2 mg) IV X1 ONE Stop: 06/13/25 19:48 Last Admin: 06/13/25 20:15 Dose: 2 mg Morphine Sulfate (Morphine Sulf Inj 4 Mg/Ml Vial) 1 mg IVP Q6HR PRN PRN Reason: PAIN SCALE 4-6 (Moderate Stop: 06/19/25 09:56 Morphine Sulfate (Morphine Sulf Inj 4 Mg/Ml Vial) 1 mg IVP Q6HR PRN PRN Reason: PAIN SCALE 4-6 (Moderate Stop: 06/19/25 00:28 Last Admin: 06/14/25 00:40 Dose: 1 mg Ondansetron HCl (Ondansetron Inj 2 Mg/Ml Inj 2 Ml) 4 mg IVP X1 ONE; Protocol Stop: 06/13/25 15:28 Last Admin: 06/13/25 16:51 Dose: 4 mg Pantoprazole Sodium (Pantoprazole Inj 40 Mg Vial) 40 mg IVP X1 ONE Stop: 06/13/25 15:28 Last Admin: 06/13/25 16:51 Dose: 40 mg Assessment & Plan Plan 65-year-old male with past medical history of hypertension, meth/fentanyl use presented to the ED after having cough, fatigue for the last 2 day. Patient admitted for community acquired pneumonia. GI consulted for potential upper GI bleed. #?Upper GI bleed Floor team noted melena x3 previously, however patient denies bleeding from anywhere Not complaining of any abdominal pain, denies any history of GI issues No previous EGD or colonoscopy performed in the past Ggb at 13.4, stable No signs and symptoms of bleeding No significant alcohol history No significant NSAID use Patient explicitly said does not want any EGD performed even after the indication, risks and benefits of the procedure had been mentioned Plan: -FOBT ordered, follow-up on result -Protonix 40 mg IV daily -Monitor hemoglobin with daily CBC -Keep hemoglobin above 7 Ongoing issues, managed by the primary team: #Fentanyl withdrawal #Fentanyl use disorder #Diffuse body pain, aches #Community acquired pneumonia #Tachypnea #HTN #tachycardia #electrolyte derangements #hypomagnesemia #hypophosphatemia Thank you for the consult. We will continue to follow the patient. Case discussed with my attending Dr. James Hargrove MD PGY-1 Attending Provider Attestation/Addendum Patient evaluated laboratory data and Imaging studies reviewed He will benefit from having an upper endoscopy examination but patient does not wanted he understands the risks of not getting the procedure done Continue to monitor CBC Continue Protonix Monitor for more GI bleeding such as he had melanotic stools Will follow the patient
--- NOTE | 2025-06-14 15:55 | PC.SS ---
SS attempted to speak to patient but he is altered. 1:1 at bedside. Patient was positive tox for fentanyl. SS reviewed notes and there is no other hx of prior visits. Notes indicate that patient is homeless. Notes indicate that patient recently was accepted at [facility]. Patient will need to return to [facility] or be provided with additional resources for shelters. Patient will also need drug rehab resources provided.
[2025-06-14] MEDS: NICOTINE PATCH 7 MG/24 HR PATCH.TD24 TOP (16:21)
[2025-06-14] MEDS: AZITHROMYCIN INJ 250 MG, Sterile Water 2.5 ML in SODIUM CHLORIDE 0.9% 250 ML 250 ML 252.5 MG IV (21:13)
[2025-06-15] VITALS: BP 147/90; PULSE 81; RESP 18; TEMP 37.3; O2SAT 97
[2025-06-15 02:38] VITALS: PULSE 93; RESP 18; RESP 98
[2025-06-15 04:00] VITALS: BP 163/97; PULSE 79; RESP 18; TEMP 36.2; O2SAT 92
[2025-06-15 06:12] LABS: Basophils # (Auto) 0.0 Thou/mm3 (0.0-0.2); Basophils % (Auto) 0 % (0-2.5); Eosinophils # (Auto) 0.0 Thou/mm3 (0.0-0.5); Eosinophils % (Auto) 0 % (0-10); Hematocrit 40.2 % (41.0-53.0); Hemoglobin 13.4 g/dL (13.5-16.0); Immature Granulocytes Auto 0.12 Thou/mm3 (0.00-0.00); Lymphocytes # (Auto) 1.3 Thou/mm3 (1.0-4.8); Lymphocytes % (Auto) 9 % (10-50); Mean Corpuscular HGB Conc 33.3 g/dl (31.0-37.0); Mean Corpuscular Hemoglobin 29.5 pg (25.0-35.0); Mean Corpuscular Volume 88 fL (80-100); Monocytes # (Auto) 0.8 Thou/mm3 (0.0-0.8); Monocytes % (Auto) 6 % (0-12); Neutrophils # (Auto) 11.3 Thou/mm3 (1.8-7.7); Neutrophils % (Auto) 83 % (37-80); Nucleated Red Blood Cell # 0.00 Thou/mm3 (0.00-0.00); Nucleated Red Blood Cell % 0 /100 WBC (0); RDW Standard Deviation 40.4 fL (35.1-43.9); Red Blood Count 4.55 Miln/mm3 (4.50-5.90); White Blood Count 13.5 Thou/mm3 (3.8-10.6)
[2025-06-15 06:26] LABS: Platelet Count 161 Thou/mm3 (140-440)
[2025-06-15 06:52] LABS: Alanine Aminotransferase 21 U/L (10-49); Albumin, Serum 4.2 gm/dL (3.4-4.8); Albumin/Globulin Ratio 1.4 (1.2-2.2); Alkaline Phosphatase 101 U/L (46-116); Anion Gap 8 (7-16); Aspartate Amino Transferase 21 U/L (0-34); BUN/Creatinine Ratio 14 Ratio (12-20); Bilirubin,Total 0.4 mg/dL (0.3-1.2); Blood Urea Nitrogen 13 mg/dL (9-23); Calcium 9.2 mg/dL (8.3-10.6); Calcium (Corrected) 9.2 mg/dL (8.5-10.1); Carbon Dioxide 28.0 mMol/L (20.0-31.0); Chloride 106 mMol/L (98-107); Creatinine (Component) 0.9 mg/dL (0.6-1.3); Estimated Creatinine Clearance 73.8 mL/min (>60); Globulin 3.0 gm/dL (2.3-3.5); Glucose 136 mg/dL (74-106); Magnesium 2.0 mg/dL (1.6-2.6); Osmolality,Calculated 285 (275-295); Phosphorous 2.3 mg/dL (2.4-5.1); Potassium 3.7 mMol/L (3.4-5.1); Sodium 142 mMol/L (136-145); Total Protein 7.2 gm/dL (5.7-8.2); eGFR > 60 See Note
[2025-06-15 08:00] VITALS: BP 145/85; PULSE 78; RESP 17; TEMP 36.1; O2SAT 97
[2025-06-15] MEDS: cefTRIAXone/D5w 1gm IV premix 1 GM/50 ML BAG IV (08:23)
[2025-06-15] MEDS: NICOTINE PATCH 7 MG/24 HR PATCH.TD24 TOP (08:23)
[2025-06-15] MEDS: NAPH,KPH MBDB 1 PACKET (1.5 GM) PO (08:23)
[2025-06-15] MEDS: ENOXAPARIN SOD INJ 40 MG/0.4 ML SYRINGE SC (08:23)
[2025-06-15 09:01] VITALS: PULSE 87; RESP 20; RESP 98
[2025-06-15 09:28] LABS: Free T4 (Free Thyroxine) 0.91 ng/dL (0.89-1.76)
--- NOTE | 2025-06-15 09:54 | ESDS_ITS ---
<Statement entered by Leandro Castillo MD - 06/15/25 09:59> Note reviewed and agree with care plan as documented. Please refer to the note below for further details. Plan discussed with attending physician Dr. Radha Castillo MD PGY-2 Internal Medicine Planned Discharge Date 06/15/25 DS: Providers Provider Date of admission: 06/13/25 18:23 Primary care physician: Physician No Primary/Family Admitting Provider: Abhijeet Garcia MD Attending Provider on Admission: Abhijeet Garcia MD Consults: 06/13/25 19:40 Consult to Gastroenterology Routine Comment: Consulting Provider: Darline Ramirez 06/13/25 22:27 Referral Infection Control Routine Comment: Reason for Infection Control Referral: Multiple ABX (>2) Health Equity Referral - Knowledge Deficit Routine Comment: Positive screening for knowledge deficit needs. Health Equity Referral - Nutrition Routine Comment: Positive screening for nutrition needs. Health [facility]ity Referral - Safety Routine Comment: Positive screening for safety needs. Health Equity Referral - Transportation Routine Comment: Positive screening for transportation needs. Attending Provider on DC: Abhijeet Garcia MD Discharging Provider: Abhijeet Garcia MD DS: Diagnosis Problem List Completed Was Problem List Reviewed/Reconciled?: Yes Hospital Course Hospital Course Hospital course: Patient is a 65-year-old male with past medical history of hypertension (not using anti-hypertensives), meth/fentanyl use presented to the ED at [facility] after having cough, fatigue for the last 2 day. Patient was admitted for workup and management of pneumonia. Patient notably has a history of fentanyl and meth use and presented with findings consistent with opioid withdrawal. Patient had elevated blood pressure which improved throughout the hospital course. Patient stated he was in immense diffuse pain on admission and was given a morphine dose one time. Patient states he was trying to get well enough so he would be accepted to his drug rehab center. For patient's pneumonia he was started on antibiotics and had supportive care in place. Patient had a very elevated wbc count and imaging showing significant bibasilar pneumonia, also had fever initially which resolved and tachypnea. Patient was discharged after having significant improvement in white blood cell count, symptomatic improvement, afebrile and was discharged in clinically stable status with blood cultures showing no growth after two days and outpatient antibiotics were prescribed. Discharge Instructions ? Take amoxicillin-clavulanate twice per day for a total of 5 more days ? Continue taking all other home medications as prescribed ? Follow-up with PCP within 1-2 weeks of discharge ? If you do not have a PCP, you can follow-up at the [facility] (you can call [phone] to make an appointment) ? Return to ED if symptoms worsen or recur #Community acquired pneumonia #Tachypnea #Fentanyl withdrawal #Fentanyl use disorder #Diffuse body pain #HTN #tachycardia #electrolyte derangements #hypomagnesemia #hypophosphatemia Patient plan of care was discussed with the attending physician, Dr. Garcia & senior resident Dr. Anna Sánchez MD PGY-1 Time Spent with Patient Time attestation: Total time spent providing and/or coordinating discharge services: Time spent: Greater than 30 minutes Exam Vital Signs Temp Pulse Resp BP Pulse Ox O2 Del Method 97.0 F 87 20 145/85 H 97 Room Air 06/15/25 08:00 06/15/25 09:01 06/15/25 09:01 06/15/25 08:00 06/15/25 08:00 06/15/25 08:00 Narrative Exam General: Resting in bed no acute distress; A&Ox3; tired appearing Skin: Scratch penaloza fresh/healing scattered throughout body. Tattoos, injection penaloza on arm HENT: NCAT, EOMI/PERRL, not icteric. External ears normal. No rhinorrhea. Moist mucous membranes Cardiovascular: Regular rate and rhythm, no murmur, +S1/S2. Respiratory: Decreased lung sounds bilateral lung lobes, clear other [place]co GI: Soft, nontender, non-distended. No guarding or rebound tenderness. : No suprapubic tenderness. No flank tenderness bilaterally. Extremities: trace edema b/l, no cyanosis, no clubbing. Extremity pulses present Neuro: Grossly nonfocal. Moving all 4 extremities. CN not formally tested but appear grossly intact. Psychiatric: Cooperative, appropriate affect. Discharge Plan Plan Patient Disposition: HOME (Self Care) Disposition Comment: Discharged to rehabilitation/substance abuse center Patient condition on transfer: Stable Care Plan Goals: ? Take amoxicillin-clavulanate twice per day for a total of 5 more days ? Continue taking all other home medications as prescribed ? Follow-up with PCP within 1-2 weeks of discharge ? If you do not have a PCP, you can follow-up at the [facility] (you can call [phone] to make an appointment) ? Return to ED if symptoms worsen or recur Prescriptions/Referrals Prescriptions/Med Rec: New nicotine 7 mg/24 hr Patch 24 Hour 7 mg top QDAY 30 Days Qty: 30 0RF amoxicillin-pot clavulanate 875-125 mg tablet 1 tab PO BID 5 Days Qty: 10 0RF Referrals: No Primary/Family,Physician [Primary Care Provider] Patient/Caregiver Discharge Instructions Education Materials: ED Pneumonia (Adult) Print Language: Slovenian Stand Alone Forms: [employer] Award Info., Patient Portal Info Letter Discharge Order Discharge Orders: Discharge (Routine); Ordered 06/15/25 Ordered By: Leandro Dee [facility] Quality Discharge Quality Measures VTE prophylaxis Attestestation MD Attestation I have examined the patient, reviewed labs and imaging findings, discussed the case with the resident(s), and reviewed entered orders. I agree with the plan of care as outlined in this note. Time Spent; [address] Radha MD
--- NOTE | 2025-06-15 11:50 | PC.SS ---
Head Athletic Trainer/Strength Coach (AMANDA) Melanie met with the patient at the bedside to complete an initial assessment and discuss a discharge plan. Patient is alert and oriented to person, place, time, and situation, and provided verbal consent to participate in the assessment. The patient was admitted for pneumonia. Patient is Davis Almendarez, an unhoused [place]-speaking male from the [facility]. The patient does not have a surrogate medical decision maker; the patient has a poor support system. The patient was released from residential two years ago, and since then, he has been unhoused. Patient is on parole, and his property and casualty insurance agent is from the [facility] in [place]; patient was unable to recall his name. Patient reports that at baseline, he uses a cane to ambulate. The patient's discharge plan is to return to the [facility]. AMANDA called [facility],[phone], to confirm the patient can return; per Alexandre, he can return, and they will provide transportation. Patient d/c with a d/c packet and medications were sent to [facility]; information was provided to Anil. Patient was educated on substance abuse cessation and provided with [facility], mental health and substance abuse resources. Surrogate medical decision maker: none Discharge plan: [facility]
--- NOTE | 2025-06-15 21:59 | PD.IMPROG ---
Documentation for date of: 06/15/25 Subjective Subjective Interval history: Late entry for the note patient has tremendous improvement with this pneumonia Being sent home on oral antibiotics still does not want any invasive GI workup for his melanotic stools Exam Vital Signs Temp Pulse Resp BP Pulse Ox O2 Del Method 97.0 F 87 20 145/85 H 97 Room Air 06/15/25 08:00 06/15/25 09:01 06/15/25 09:01 06/15/25 08:00 06/15/25 08:00 06/15/25 08:00 Objective Labs 06/15/25 05:05 06/15/25 05:05 Labs: Laboratory Results - last 24 hr 06/15/25 05:05 WBC 13.5 H D RBC 4.55 Hgb 13.4 L Hct 40.2 L MCV 88 MCH 29.5 MCHC 33.3 RDW Std Deviation 40.4 Plt Count 161 D Neut % (Auto) 83 H Lymph % (Auto) 9 L Frontier % (Auto) 6 Eos % (Auto) 0 Baso % (Auto) 0 Neut # (Auto) 11.3 H Lymph # (Auto) 1.3 Frontier # (Auto) 0.8 Eos # (Auto) 0.0 Baso # (Auto) 0.0 Immature Gran # (Auto) 0.12 H Absolute Nucleated RBC 0.00 Immature Gran % 1 H Nucleated RBC % 0 Sodium 142 Potassium 3.7 Chloride 106 Carbon Dioxide 28.0 Anion Gap 8 BUN 13 Creatinine 0.9 Estim Creat Clear Calc 73.8 eGFR > 60 BUN/Creatinine Ratio 14 Glucose 136 H Calculated Osmolality 285 Calcium 9.2 Corrected Calcium 9.2 Phosphorus 2.3 L Magnesium 2.0 Total Bilirubin 0.4 D AST 21 ALT 21 Alkaline Phosphatase 101 Total Protein 7.2 Albumin 4.2 Globulin 3.0 Albumin/Globulin Ratio 1.4 Free T4 0.91 Impressions Impression: Melena etiology uncertain Bibasilar pneumonia If patient changes his mind he can see me as an outpatient Assessment & Plan Time Spent With Patient Time: Total time spent is greater than 50% in coordination of care (as documented) at patient's floor/unit and/or counseling patient:
== END 2025-06-15 11:21 | disposition home or self-care (01) | DRG 194 ==
LOC: SERX 17:27 → S3SX 06-14 05:33 → SERHOLD 06-14 05:33
PROVIDERS: Nurse Practitioner Primary Care; Admitting Provider Student in an Organized Health Care Education/Training Program; Emergency Provider Family Medicine; Visit Provider Student in an Organized Health Care Education/Training Program
DX: J18.9 Pneumonia, unspecified organism (principal); F11.13 Opioid abuse with withdrawal; K92.1 Melena; F17.200 Nicotine dependence, unspecified, uncomplicated; R06.82 Tachypnea, not elsewhere classified; I10 Essential (primary) hypertension; I45.10 Unspecified right bundle-branch block; E83.42 Hypomagnesemia; E83.39 Other disorders of phosphorus metabolism; Z88.5 Allergy status to narcotic agent
CPT/HCPCS: 36415; 71045; 80053; 80061; 80307; 81001; 83036; 83605; 83735; 83880; 84100; 84145; 84439; 84443; 84484; 85025; 85610; 85730; 86480; 87040; 87081; 87502; 87634; 87635; 87651; 93005; 94762; 96365; 96375; 99285; A4216; J0131; J0456; J0696; J1650; J2270; J2405; J2470; J3475; J7050; J7120; A9270